=== PATIENT | male | born 1995 | race Caucasian/White ===

== ENCOUNTER 2019-04-10 08:20 | Emergency (ER) | payer BC ==
--- NOTE | 2019-04-10 09:26 | RAD ---
RIGHT SHOULDER 3 VIEWS: Date: 04/10/19 INDICATION: Recent shoulder dislocation. FINDINGS: There is no fracture or dislocation of the right shoulder. AC joint is maintained. IMPRESSION: No acute osseous abnormality of the right shoulder. POS: [facility]
== END 2019-04-10 10:17 | disposition home or self-care (01) ==
LOC: ERS 08:20
DX: M25.511 Pain in right shoulder (principal); M25.571 Pain in right ankle and joints of right foot; W18.30XA Fall on same level, unspecified, initial encounter; Y93.72 Activity, wrestling